=== PATIENT | female | born 1990 | race Caucasian/White ===

== ENCOUNTER 2017-11-18 02:01 | Inpatient (IN) | payer BC ==
[2017-11-18] VITALS (32 sets, daily range): BP systolic 91–126; BP diastolic 50–78; PULSE 66–101; TEMP 97.1–98.1
[~2017-11-18] VITALS: Ht 167.6 cm; Wt 85.0 kg
[~2017-11-18 02:01] MED LIST: MOTRIN 600600 MG/TAB PO; PERCOCET 325 MG1 TA2 PO; PRENATAL MVI PO; TUMS500 MG PO
[2017-11-18 02:41] LABS: BASO # 0.1 (0.0-0.2); BASO % 0.4 % (0.0-2.0); EOS # 0.3 (0.0-0.7); EOS % 1.9 % (0-4.0); GRAN # 11.1 (1.4-6.5); GRAN % 68.4 % (42.2-75.2); HEMATOCRIT 40.1 % (37.0-47.0); HEMOGLOBIN 13.8 g/dl (12.5-16.0); LYMPH # 3.5 (1.2-3.4); LYMPH % 21.5 % (20.0-51.0); MEAN CELL VOLUME 90 fl (80.0-100.0); MEAN CORPUSCULAR HEMOGLOBIN 31 pg (27.0-31.0); MEAN CORPUSCULAR HGB CONC 34 g/dl (33.0-37.0); MEAN PLATELET VOLUME 9.4 fl (7.4-10.4); MONO # 1.2 (0.1-0.6); MONO % 7.1 % (1.7-9.3); PLATELET COUNT 256 K/mm3 (130-400); RED BLOOD COUNT 4.45 M/mm3 (4.10-5.30); REDCELL DISTRIBUTION WIDTH-CV 13.2 % (11.5-14.5)
[2017-11-19 04:30] VITALS: BP 106/74; PULSE 68
[2017-11-19 07:00] VITALS: BP 98/54; PULSE 69; TEMP 98.1
[2017-11-19] MEDS ORDERED: IBU800 M1 PO (09:34)
== END 2017-11-19 12:09 | disposition home or self-care (01) | DRG 775 ==
LOC: LDRO 02:01 → OB 02:15 → LDR 02:15 → OB 10:00
PROVIDERS: Obstetrics & Gynecology
PROC: 10E0XZZ Delivery of Products of Conception, External Approach (ICD-10-PCS; principal; 2017-11-18)
PROC: 0KQM0ZZ Repair Perineum Muscle, Open Approach (ICD-10-PCS; 2017-11-18)
DX: O48.0 Post-term pregnancy (principal); O70.1 Second degree perineal laceration during delivery; Z3A.40 40 weeks gestation of pregnancy; Z37.0 Single live birth
CPT/HCPCS: J1200; J2590; J2795; J7120